=== PATIENT | male | born 1955 | race Two or more races ===

== ENCOUNTER 2018-03-16 15:54 | Emergency (ER) | payer OTHER ==
[~2018-03-16] VITALS: Ht 180.3 cm; Wt 90.7 kg
[2018-03-16] MEDS ORDERED: cefTRIAXone SOD 1,000 MG VL IM ONE (16:15)
[2018-03-16 17:05] VITALS: BP 140/75
[2018-03-16 17:40] LABS: Urine Bacteria NONE SEEN /hpf (None Seen); Urine Blood Negative /uL (Negative); Urine Specific Gravity 1.009 (1.001-1.035); Urine WBC <1 /hpf (0 - 3)
== END 2018-03-16 18:30 | disposition home or self-care (01) ==
LOC: ER 15:54
DX: N40.1 Benign prostatic hyperplasia with lower urinary tract symptoms (principal); N39.0 Urinary tract infection, site not specified
CPT/HCPCS: 51702; 74176; 81001; 84154; 96372; 99284; J0696